=== PATIENT | male | born 1970 | race Two or more races ===

== ENCOUNTER 2021-01-16 02:12 | Emergency (ER) | payer OTHER ==
[~2021-01-16] VITALS: Ht 172.7 cm; Wt 72.6 kg
--- NOTE | 2021-01-16 02:14 | NUR ---
PT BIBLAPD C/O LEFT ANKLE PAIN AND RAZOR CUTS ON RIGHT HAND. PT AAOX4 BREATHING EVENLY AND UNLABORED. PT STATES "I JUMPED OVER A FENCE AND LANDED THE WRONG WAY". PT SKIN WARM, DRY, AND INTACT. MINOR SWELLING NOTED ON LEFT ANKLE. PT ATTACHED TO MONITOR AND POX. PT GIVEN BLANKET AND CALL LIGHT WITHIN REACH. WILL CONTINUE TO MONITOR.
[2021-01-16] MEDS ORDERED: IBUPROFEN 400 MG TABLET ONE (02:23)
[2021-01-16] MEDS ORDERED: IBUPROFEN 400 MG TABLET PO ONE (02:30)
--- NOTE | 2021-01-16 03:16 | NUR ---
Patient discharged to home in stable condition. Written and verbal after care instructions given. Patient verbalizes understanding of instruction. Pt ambulatory with a steady gait
[2021-01-16 03:21] VITALS: BP 128/70
== END 2021-01-16 03:16 ==
LOC: ER 02:17
DX: S93.692A Other sprain of left foot, initial encounter (principal); W17.89XA Other fall from one level to another, initial encounter; Y93.39 Activity, other involving climbing, rappelling and jumping off; Y92.89 Other specified places as the place of occurrence of the external cause; Y99.8 Other external cause status
CPT/HCPCS: 73630-TC